=== PATIENT | male | born 1970 | race Caucasian/White ===

== ENCOUNTER 2020-01-17 20:40 | Emergency (ER) | payer BC ==
[~2020-01-17] VITALS: Ht 160 cm; Wt 67.6 kg
[2020-01-17 21:15] VITALS: BP 171/79
[2020-01-17 21:50] LABS: BASOPHILS # (AUTO) 0.1 K/uL (0.00-0.22); BASOPHILS % (AUTO) 0.8 % (0.0-2.0); EOSINOPHILS # (AUTO) 0.1 K/uL (0-0.4); EOSINOPHILS % (AUTO) 1.3 % (0.0-4.0); HEMATOCRIT 45.2 % (36-52); HEMOGLOBIN 15.2 g/dL (12.0-18.0); LYMPHOCYTES # (AUTO) 2.2 K/uL (2.0-11.5); MEAN CORPUSCULAR HEMOGLOBIN 30 pg (27-31); MEAN CORPUSCULAR HGB CONC 34 g/dL (33-37); MEAN CORPUSCULAR VOLUME 88.6 fL (80-94); MONOCYTES # (AUTO) 0.6 K/uL (0.8-1.0); MONOCYTES % (AUTO) 7.7 % (1.7-9.3); NEUTROPHILS # (AUTO) 5.4 K/uL (1.8-7.7); NEUTROPHILS % (AUTO) 64.2 % (42.2-75.2); PLATELET COUNT (AUTO) 368 K/uL (140-450); RED CELL DISTRIBUTION WIDTH 12.8 % (11.6-13.7); WHITE BLOOD COUNT (AUTO) 8.4 K/uL (4.8-10.8)
[2020-01-17 22:02] LABS: ANION GAP 10.2 (8-16); CARBON DIOXIDE 29.4 mmol/L (21-32); POTASSIUM 3.6 mmol/L (3.5-5.1)
--- NOTE | 2020-01-17 22:07 | NUR ---
Pt provided urine cup for encouragement of urine same. pt ambulated to Restroom w/ steady gait.
--- NOTE | 2020-01-17 22:10 | NUR ---
PT C/O OF ASTHMA AND SORE THROAT X 2-3 DAYS. HAS A HX OF ASTHMA, HAS BEEN USING HER INHALER WITH NO RELIEF. PT STATES SORE THROAT PAIN IS 8/10 AND IS CONSTANT. DENIES ANY N/V/D. AFEBRILE. WHEEZES NOTED THROUGHOUT BILATERAL LUNG RAMIREZ. 02 SAY 98-99% ON ROOMAIR. PT STATES DRY COUGH, NON-PRODUCTIVE. PT PLACED IN GOWN, BED IN LOWEST POSITION AND SIDERAIL UP X 1. PT RESTING IN BED, LOCKED AND IN LOWEST POSITION, HOB ELEVATED, SIDE RAIL X1 FOR PT SAFETY. ERMD MADE AWARE OF PT STATUS. NO ACUTE DISTRESS NOTED AT THIS TIME. HX - ASTHMA, HLD, HTN
--- NOTE | 2020-01-17 22:25 | NUR ---
urine sample collected and handed to randal jaime tech.
[2020-01-17 22:41] LABS: APPEARANCE,URINE CLEAR (CLEAR); BILIRUBIN,URINE NEGATIVE (NEGATIVE); BLOOD, URINE 1+ (NEGATIVE); COLOR,URINE YELLOW (YELLOW); LEUKOCYTE ESTERASE ,URINE NEGATIVE (NEGATIVE); NITRITE, URINE NEGATIVE (NEGATIVE); UGLUCOSE NEGATIVE (NEGATIVE)
--- NOTE | 2020-01-17 23:27 | NUR ---
MARGIE LAKE AT BEDSIDE
[2020-01-17 23:32] VITALS: BP 135/72
--- NOTE | 2020-01-17 23:32 | NUR ---
Patient discharged with v/s stable. Written and verbal after care instructions given and explained. Patient verbalized understanding. Ambulatory with steady gait. All questions addressed prior to discharge. Advised to follow up with PMD.
[2020-01-18 00:34] LABS: WBC,URINE 0-5 /HPF (0-5)
== END 2020-01-17 23:32 | disposition home or self-care (01) ==
LOC: MED 20:40
DX: I10 Essential (primary) hypertension (principal); R51.9 Headache, unspecified
CPT/HCPCS: 36415; 80048; 81001; 85025; 99283

== ENCOUNTER 2020-07-30 10:21 | Emergency (ER) | payer SELFPAY ==
[~2020-07-30] VITALS: Ht 160 cm; Wt 68.0 kg
[2020-07-30 10:28] VITALS: BP 142/78
[2020-07-30 10:53] LABS: BASOPHILS # (AUTO) 0.1 K/uL (0.00-0.22); BASOPHILS % (AUTO) 0.7 % (0.0-2.0); EOSINOPHILS # (AUTO) 0.1 K/uL (0-0.4); EOSINOPHILS % (AUTO) 0.8 % (0.0-4.0); HEMATOCRIT 45.3 % (36-52); HEMOGLOBIN 15.4 g/dL (12.0-18.0); LYMPHOCYTES # (AUTO) 1.9 K/uL (2.0-11.5); LYMPHOCYTES % (AUTO) 25.3 % (20.5-51.1); MEAN CORPUSCULAR HEMOGLOBIN 30 pg (27-31); MEAN CORPUSCULAR HGB CONC 34 g/dL (33-37); MEAN CORPUSCULAR VOLUME 88.7 fL (80-94); MONOCYTES # (AUTO) 0.4 K/uL (0.8-1.0); MONOCYTES % (AUTO) 5.8 % (1.7-9.3); NEUTROPHILS # (AUTO) 4.9 K/uL (1.8-7.7); NEUTROPHILS % (AUTO) 67.4 % (42.2-75.2); PLATELET COUNT (AUTO) 322 K/uL (140-450); RED CELL DISTRIBUTION WIDTH 12.9 % (11.6-13.7); WHITE BLOOD COUNT (AUTO) 7.3 K/uL (4.8-10.8)
[2020-07-30] MEDS: ASPIRIN 325 MG TAB PO ONE (11:00)
[2020-07-30 11:02] LABS: ANION GAP 9.7 (8-16); CARBON DIOXIDE 25.8 mmol/L (21-32); CREATININE 0.8 mg/dL (0.6-1.3); POTASSIUM 3.5 mmol/L (3.5-5.1)
[2020-07-30] MEDS ORDERED: NAPR-54 PO (14:33)
[2020-07-30] MEDS ORDERED: PRED20TA5 PO (14:33)
[2020-07-30 14:44] VITALS: BP 116/68
== END 2020-07-30 14:45 | disposition home or self-care (01) ==
LOC: MED 10:21
DX: S43.402A Unspecified sprain of left shoulder joint, initial encounter (principal); R07.89 Other chest pain; I10 Essential (primary) hypertension; E78.00 Pure hypercholesterolemia, unspecified; Z98.890 Other specified postprocedural states; Z79.899 Other long term (current) drug therapy; Z79.1 Long term (current) use of non-steroidal anti-inflammatories (NSAID); X58.XXXA Exposure to other specified factors, initial encounter; Y92.89 Other specified places as the place of occurrence of the external cause; Y93.89 Activity, other specified; Y99.8 Other external cause status
CPT/HCPCS: 36415; 71045; 80048; 81002; 84484; 85025; 93005; 99285

== ENCOUNTER 2021-01-03 12:19 | Emergency (ER) | payer OTHER ==
[~2021-01-03] VITALS: Ht 162.6 cm; Wt 63.5 kg
[~2021-01-03 12:19] MED LIST: NAPR-54 PO; PRED20TA5 PO
[2021-01-03 12:40] VITALS: BP 120/75
--- NOTE | 2021-01-03 13:00 | NUR ---
pt c/o feeling tired and left leg pain denies injury or trauma. no acute distress noted. safety maintained.
[2021-01-03] MEDS ORDERED: NAPR-1704 PO (13:29)
--- NOTE | 2021-01-03 13:36 | NUR ---
pt verbalizes dc instructions. no acute distress noted. stable on dc.
[2021-01-03 13:37] VITALS: BP 122/70
== END 2021-01-03 13:37 | disposition home or self-care (01) ==
LOC: MED 12:19
DX: S76.312A Strain of muscle, fascia and tendon of the posterior muscle group at thigh level, left thigh, initial encounter (principal); I10 Essential (primary) hypertension; Z79.899 Other long term (current) drug therapy; X58.XXXA Exposure to other specified factors, initial encounter; Y93.89 Activity, other specified; Y92.89 Other specified places as the place of occurrence of the external cause; Y99.8 Other external cause status
CPT/HCPCS: 99281; 99282

== ENCOUNTER 2021-01-28 10:36 | Emergency (ER) | payer OTHER ==
[~2021-01-28] VITALS: Ht 154.9 cm; Wt 69.4 kg
[~2021-01-28 10:36] MED LIST changes: +NAPR-1704 PO
[2021-01-28 10:39] VITALS: BP 138/74
--- NOTE | 2021-01-28 10:47 | NUR ---
PT RETURNED TO LOBBY AT THIS TIME
--- NOTE | 2021-01-28 10:49 | NUR ---
PT AMBULATED TO BED 9 AT THIS TIME
--- NOTE | 2021-01-28 10:59 | NUR ---
50 Y/O M BIB SELF FROM HOME, C/O L LEG PAIN FOR 1 MONTH. PT STATES INTERMITTENT 4/10 PAIN TO LT UPPER THIGH AND LT CALF AGITATED WITH AMBULATION FOR 1 MONTH. DENIES N/V/D, SORE THROAT, FEVER, CHILLS, CP OR SOB. DENIES INJURY OR FALL. NO MEDICATIONS TAKEN. PMH: HTN, HYPERLIPIDEMIA NKA
--- NOTE | 2021-01-28 11:00 | NUR ---
ANABELL SERRA AT BEDSIDE EVALUATING PT
[2021-01-28] MEDS ORDERED: LID5T TP (11:08)
[2021-01-28] MEDS ORDERED: IBUP-2213 PO (11:08)
[2021-01-28 11:15] VITALS: BP 138/74
--- NOTE | 2021-01-28 11:17 | NUR ---
The patient's care was reviewed and supervised by Rajeev Rice RN.
--- NOTE | 2021-01-28 11:17 | NUR ---
Patient discharged with v/s stable. Written and verbal after care instructions given and explained. Patient alert, oriented and verbalized understanding of instructions. Ambulatory with steady gait. All questions addressed prior to discharge. ID band removed. Rx of IBUPROFEN AND LIDOCAINE HYD given.
== END 2021-01-28 11:15 | disposition home or self-care (01) ==
LOC: MED 10:36
DX: S76.912A Strain of unspecified muscles, fascia and tendons at thigh level, left thigh, initial encounter (principal); I10 Essential (primary) hypertension; Z79.899 Other long term (current) drug therapy; X58.XXXA Exposure to other specified factors, initial encounter; Y93.89 Activity, other specified; Y92.89 Other specified places as the place of occurrence of the external cause; Y99.8 Other external cause status
CPT/HCPCS: 99283

== ENCOUNTER 2021-05-22 10:12 | Emergency (ER) | payer BC, OTHER ==
[~2021-05-22] VITALS: Ht 157 cm; Wt 72.2 kg
[~2021-05-22 10:12] MED LIST changes: +IBUP-2213 PO; +LID5T TP
[2021-05-22 10:15] VITALS: BP 145/79
--- NOTE | 2021-05-22 10:18 | NUR ---
PATIENT AMBULATED TO BED 8.
--- NOTE | 2021-05-22 10:44 | NUR ---
DR KULKARNI AT BEDSIDE.
[2021-05-22] MEDS ORDERED: NACL 0.9% 1,000 ML IV ONE (10:45)
--- NOTE | 2021-05-22 10:49 | NUR ---
51 Y/O MALE BIB SELF C/O DIZZINESS X 1 DAY. PT DENIES SYNCOPE, N/V/D. PT DENIES ARVIZU, SOB, OR CHEST PAIN. PT STATES HE JUST STARTED A NEW JOB AND HAS NOT BEEN ABLE TO SLEEP. HE HAS BEEN TAKING MELATONIN A SLEEP AID FOR APPROX. 1 WK. PT A&O X4. BED IN LOWEST POSITION, BED RAIL X1. PMH: HTN,HYPERCHOLESTRONEMIA MEDS: ATROVASTATIN, LISINOPRIL NKA
--- NOTE | 2021-05-22 11:02 | NUR ---
LAB WORK COLLECTED AND HANDED TOP DRAWBENCH OPERATOR HELPER AT BEDSIDE
[2021-05-22 11:34] LABS: ANION GAP 11.1 (8-16); ASPARTATE AMINOTRANSFERASE 18 U/L (15-37); CHLORIDE 103 mmol/L (98-107); CREATININE 0.9 mg/dL (0.6-1.3); GFR ARICAN-AMERICAN 114 mL/min (>90); GLUCOSE 119 mg/dL (74-106); POTASSIUM 4.1 mmol/L (3.5-5.1); SODIUM SERUM 139 mmol/L (136-145); TOTAL BILIRUBIN 0.4 mg/dL (0.0-1.0); UREA NITROGEN, BLOOD 15 mg/dL (7-18)
[2021-05-22 11:36] LABS: BASOPHILS # (AUTO) 0.1 K/uL (0.00-0.22); BASOPHILS % (AUTO) 1.5 % (0.0-2.0); EOSINOPHILS # (AUTO) 0.1 K/uL (0-0.4); EOSINOPHILS % (AUTO) 1.5 % (0.0-4.0); HEMATOCRIT 42.3 % (36-52); HEMOGLOBIN 14.3 g/dL (12.0-18.0); LYMPHOCYTES # (AUTO) 1.9 K/uL (2.0-11.5); LYMPHOCYTES % (AUTO) 24.2 % (20.5-51.1); MEAN CORPUSCULAR HEMOGLOBIN 30 pg (27-31); MEAN CORPUSCULAR HGB CONC 34 g/dL (33-37); MEAN CORPUSCULAR VOLUME 87.9 fL (80-94); MONOCYTES # (AUTO) 0.4 K/uL (0.8-1.0); MONOCYTES % (AUTO) 5.3 % (1.7-9.3); NEUTROPHILS # (AUTO) 5.4 K/uL (1.8-7.7); NEUTROPHILS % (AUTO) 67.5 % (42.2-75.2); PLATELET COUNT (AUTO) 346 K/uL (140-450); RED BLOOD CELL COUNT(AUTO) 4.81 MIL/uL (4.20-6.10)
--- NOTE | 2021-05-22 11:38 | NUR ---
PT. APPEARS TO BE RESTING COMFORTABLY IN BED. RESPIRATIONS EVEN AND UNLABORED.
[2021-05-22 13:03] VITALS: BP 141/75
== END 2021-05-22 13:03 | disposition home or self-care (01) ==
LOC: MED 10:12
DX: R42 Dizziness and giddiness (principal); R53.83 Other fatigue; I10 Essential (primary) hypertension; Z79.899 Other long term (current) drug therapy
CPT/HCPCS: 36415; 80053; 81002; 84484; 85025; 93005; 96360; 99284; J7030

== ENCOUNTER 2022-03-22 18:50 | Emergency (ER) | payer SELFPAY ==
[~2022-03-22] VITALS: Ht 167.6 cm; Wt 77.1 kg
[2022-03-22 18:57] VITALS: BP 149/90
[2022-03-22] MEDS ORDERED: LIDOCAINE 5% 1 EA PATCH TP STA (20:32)
--- NOTE | 2022-03-22 20:33 | NUR ---
Dr. Coleman examining patient.
--- NOTE | 2022-03-22 20:48 | NUR ---
Patient taken to X-ray via WC.
[2022-03-22] MEDS ORDERED: LID5T TP (21:52)
[2022-03-22 21:55] VITALS: BP 149/90
--- NOTE | 2022-03-22 21:55 | NUR ---
Patient discharged with v/s stable. Written and verbal after care instructions given and explained. Patient alert, oriented and verbalized understanding of instructions. Ambulatory with steady gait. All questions addressed prior to discharge. ID band removed. Patient advised to follow up with PMD. Rx of LIDODERM given. Patient educated on indication of medication including possible reaction and side effects. Opportunity to ask questions provided and answered.
== END 2022-03-22 21:55 | disposition home or self-care (01) ==
LOC: MED 18:50
DX: R07.89 Other chest pain (principal); I10 Essential (primary) hypertension; E78.5 Hyperlipidemia, unspecified; Z79.899 Other long term (current) drug therapy
CPT/HCPCS: 71101; 93005; 99283

== ENCOUNTER 2022-03-24 14:34 | Emergency (ER) | payer BC ==
[~2022-03-24] VITALS: Ht 160 cm; Wt 70.8 kg
[2022-03-24 14:46] VITALS: BP 126/77
[2022-03-24] MEDS ORDERED: IBUP-2213 PO (16:58)
--- NOTE | 2022-03-24 17:08 | NUR ---
Patient discharged with v/s stable. Written and verbal after care instructions about chest wall pain given and explained. Patient alert, oriented and verbalized understanding of instructions. Ambulatory with steady gait. All questions addressed prior to discharge. ID band removed. Patient advised to follow up with PMD. Rx of motrin given. Patient educated on indication of medication including possible reaction and side effects. Opportunity to ask questions provided and answered.
== END 2022-03-24 17:08 | disposition home or self-care (01) ==
LOC: MED 14:34
DX: R07.81 Pleurodynia (principal); I10 Essential (primary) hypertension; Z79.899 Other long term (current) drug therapy
CPT/HCPCS: 71101; 93005; 99283